=== PATIENT | male | born 1960 | race Caucasian/White ===

== ENCOUNTER 2016-12-17 19:49 | Observation (INO) ==
[2016-12-17] MEDS ORDERED: Ipratropium/Albuterol Neb 3 ML IH ONE (20:17)
[2016-12-17] MEDS ORDERED: methylPREDNISolone 125 MG/2 ML VIAL IVP ONE (20:18)
[2016-12-17] MEDS ORDERED: Ondansetron 4 MG/2 ML VIAL IVP ONE (20:19)
--- NOTE | 2016-12-17 20:35 | Emergency Department Note ---
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 This exposure happened 2 days ago. He does report that he sat exposure in the past. He admits that he side ongoing vertigo as well as dyspnea. In the past he has had dyspnea with his exposures but he has not had vertigo. He does not a history of CVA. He has no chronic deficits from his past CVA. He presents on arrival with tachycardia, mild dyspnea. He had mild bronchospasm on arrival. She denies hemoptysis. He denies recent Pain, leg tenderness. He has no sacral contacts. - Related Data Allergies Allergy/AdvReac Type Severity Reaction Status Date / Time No Known Allergies Allergy Verified 12/17/16 19:51 All systems ED: reviewed and negative except as stated. Past Medical History - Past Medical History Medical history: Reports: CVA Surgical history: Reports: no surgical history Psychiatric history: Reports: no psych history - Social History Smoking Status: Current every day smoker Smokeless Tobacco Status: No Alcohol use: Reports: occasionally Drug use: Reports: none Physical Exam Wheezing bilaterally, mild hypoxia, mild tachypnea Strength is 5/5, sensation is checked and normal, reflexes are checked and normal, cerebellar testing is normal - General Limitations: no limitations General appearance: alert - Eye Eye exam: Present: normal appearance - ENT ENT exam: normal exam - Chest Chest inspection: Present: normal inspection - Respiratory Respiratory exam: Present: wheezes - Abdominal Exam Abdominal exam: Present: soft, Non-Tender - Extremities Exam Extremities exam: Present: normal inspection - Back Exam Back exam: Present: normal inspection - Neurological Exam Neurological exam: Present: alert, oriented X3, CN II-XII intact - Skin Skin exam: Present: warm, dry Course Vital Signs Temperature 98.1 F 12/17/16 19:52 Pulse Rate 118 12/17/16 19:52 Respiratory Rate 20 12/17/16 19:52 Blood Pressure 119/72 12/17/16 19:52 O2 Sat by Pulse Oximetry 94 12/17/16 19:52 Temperature 98.1 F 12/17/16 19:52 Pulse Rate 110 12/17/16 21:53 Respiratory Rate 16 12/17/16 21:53 Blood Pressure 124/88 12/17/16 21:53 O2 Sat by Pulse Oximetry 97 12/17/16 21:53 Oxygen Delivery Oxygen Delivery Room Air Dizziness - MDM Narrative Medical decision making narrative: 56-year-old male with chemical pneumonitis who is having bronchospasm and mild hypoxia. He also has mild tachycardia. His EKG shows no ST segment changes. I would admit for bronchodilators, steroids. These were administered in the emergency department with moderate increase in the patient's work of breathing. He does not history of tobacco abuse. He also has some vertigo. I did contact poison control and the sequelae of chloride dioxide exposure can be variable and can include nausea, vomiting, acute lung injury. They recommended admission for observation for bronchospasm. It is possible that his vertiginous symptoms are related to exposure but given his history of CVA I think we have to explore the possibility of neurologic causes in addition to his exposure. CTA of the head was performed. He will be admitted for neuro checks and ongoing monitoring. Stable at the time of admission. - Medical Records Medical records reviewed: Yes I reviewed the patient's medical records. - Lab Data Lab results reviewed: Yes I reviewed the patient's lab results. Result diagrams: 12/17/16 20:30 12/17/16 20:30 Lab Results 12/17/16 12/17/16 12/17/16 Range/Units 20:30 20:30 20:30 WBC 12.3 H (4.3-11.1) K/mcL RBC 5.33 (4.19-5.50) M/mcL Hgb 16.2 (12.9-16.9) g/dL Hct 47.2 (37.5-50.1) % MCV 88.6 (83.0-100.0) fL MCH 30.4 (28.0-33.3) pg MCHC 34.3 (31.6-35.5) g/dL RDW 13.0 (11.5-14.5) % Plt Count 283 (140-400) K/mcL MPV 9.5 (9.4-12.4) fL Immature Gran % 0.3 (0-4) % Seg Neutrophils % 75.9 % Lymphocytes % 17.0 % Monocytes % 5.3 % Eosinophils % 1.3 % Basophils % 0.2 % Neutrophils # 9.4 H (1.6-8.9) K/mcL Lymphocytes # 2.1 (0.6-4.6) K/mcL Monocytes # 0.7 (0.0-1.3) K/mcL Eosinophils # 0.2 (0.0-0.6) K/mcL Basophils # 0.0 (0.0-0.2) K/mcL Immature Plt Fraction 2.8 (1.1-6.1) % VBG pH (7.32-7.42) pH Units VBG pCO2 (41-51) mmHg VBG pO2 (25-40) mmHg VBG HCO3 (21-27) mEq/L Sodium 138 (136-145) mEq/L Potassium 4.1 (3.5-4.5) mEq/L Chloride 104 (98-109) mEq/L Carbon Dioxide 24 (19-29) mEq/L BUN 21 (8-26) mg/dL Creatinine 1.09 (0.72-1.25) mg/dL Est GFR ( Amer) > 60 (> 60) Est GFR (Non-Af Amer) > 60 (> 60) BUN/Creatinine Ratio 19 (6-26) Glucose 98 (70-99) mg/dL Calculated Osmolality 289 (280-300) Calcium 9.8 (8.6-10.8) mg/dL Total Bilirubin 1.7 H (0.2-1.2) mg/dL AST 27 (5-34) Units/L ALT 23 (0-55) Units/L Alkaline Phosphatase 67 (38-126) Units/L Troponin I 0.00 (0-0.03) ng/mL B-Natriuretic Peptide (0-100) pg/mL Serum Total Protein 7.5 (6.0-8.3) g/dL Albumin 3.8 (3.5-5.0) g/dL Globulin 3.7 H (2.4-3.5) g/dL Albumin/Globulin Ratio 1.0 L (1.1-2.2) 12/17/16 12/17/16 Range/Units 20:30 20:30 WBC (4.3-11.1) K/mcL RBC (4.19-5.50) M/mcL Hgb (12.9-16.9) g/dL Hct (37.5-50.1) % MCV (83.0-100.0) fL MCH (28.0-33.3) pg MCHC (31.6-35.5) g/dL RDW (11.5-14.5) % Plt Count (140-400) K/mcL MPV (9.4-12.4) fL Immature Gran % (0-4) % Seg Neutrophils % % Lymphocytes % % Monocytes % % Eosinophils % % Basophils % % Neutrophils # (1.6-8.9) K/mcL Lymphocytes # (0.6-4.6) K/mcL Monocytes # (0.0-1.3) K/mcL Eosinophils # (0.0-0.6) K/mcL Basophils # (0.0-0.2) K/mcL Immature Plt Fraction (1.1-6.1) % VBG pH 7.43 H (7.32-7.42) pH Units VBG pCO2 42 (41-51) mmHg VBG pO2 63 H (25-40) mmHg VBG HCO3 27.9 H (21-27) mEq/L Sodium (136-145) mEq/L Potassium (3.5-4.5) mEq/L Chloride (98-109) mEq/L Carbon Dioxide (19-29) mEq/L BUN (8-26) mg/dL Creatinine (0.72-1.25) mg/dL Est GFR ( Amer) (> 60) Est GFR (Non-Af Amer) (> 60) BUN/Creatinine Ratio (6-26) Glucose (70-99) mg/dL Calculated Osmolality (280-300) Calcium (8.6-10.8) mg/dL Total Bilirubin (0.2-1.2) mg/dL AST (5-34) Units/L ALT (0-55) Units/L Alkaline Phosphatase (38-126) Units/L Troponin I (0-0.03) ng/mL B-Natriuretic Peptide < 10 (0-100) pg/mL Serum Total Protein (6.0-8.3) g/dL Albumin (3.5-5.0) g/dL Globulin (2.4-3.5) g/dL Albumin/Globulin Ratio (1.1-2.2) - Radiology Data Radiology results reviewed: Yes I reviewed the patient's radiology results. - EKG Data EKG attestation: Yes I reviewed and interpreted this EKG. EKG results narrative: Sinus tachycardia normal axis normal intervals and nonspecific ST segment changes
[2016-12-17 20:43] LABS: Basophils % 0.2 %; Eosinophils # 0.2 K/mcL (0.0-0.6); Eosinophils % 1.3 %; Hematocrit 47.2 % (37.5-50.1); Hemoglobin 16.2 g/dL (12.9-16.9); Immature Granulocytes % 0.3 % (0-4); Immature Platelets 2.8 % (1.1-6.1); Lymphocytes # 2.1 K/mcL (0.6-4.6); Mean Corpuscular HGB Conc 34.3 g/dL (31.6-35.5); Mean Corpuscular Hemoglobin 30.4 pg (28.0-33.3); Mean Corpuscular Volume 88.6 fL (83.0-100.0); Mean Platelet Volume 9.5 fL (9.4-12.4); Monocytes # 0.7 K/mcL (0.0-1.3); Monocytes % 5.3 %; Neutrophils # 9.4 K/mcL (1.6-8.9); Platelet Count 283 K/mcL (140-400); Red Blood Count 5.33 M/mcL (4.19-5.50); Segmented Neutrophils % 75.9 %; VBG HCO3 27.9 mEq/L (21-27); VBG PH 7.43 pH Units (7.32-7.42)
[2016-12-17 20:57] LABS: Alanine Aminotransferase 23 Units/L (0-55); Albumin 3.8 g/dL (3.5-5.0); Alkaline Phosphatase 67 Units/L (38-126); Aspartate Amino Transferase 27 Units/L (5-34); BUN/Creatinine Ratio 19 (6-26); Bilirubin,Total 1.7 mg/dL (0.2-1.2); Blood Urea Nitrogen 21 mg/dL (8-26); Calcium 9.8 mg/dL (8.6-10.8); Carbon Dioxide 24 mEq/L (19-29); Chloride 104 mEq/L (98-109); Globulin 3.7 g/dL (2.4-3.5); Glucose 98 mg/dL (70-99); Osmolality,Calculated 289 (280-300); Potassium 4.1 mEq/L (3.5-4.5); Sodium 138 mEq/L (136-145); Total Protein 7.5 g/dL (6.0-8.3); eGFR For African Americans > 60 (> 60); eGFR For Non-African Americans > 60 (> 60)
[2016-12-17 23:16] VITALS: BP 110/66
[2016-12-17] MEDS ORDERED: 0.9 % Sodium Chloride 1,000 ML IVC SCH (23:45)
[2016-12-17] MEDS ORDERED: Ipratropium/Albuterol Neb 3 ML IH PRN (23:56)
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
[2016-12-18] MEDS ORDERED: *HR* Heparin 5,000 UNIT/ML VIAL SQ SCH (06:00)
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
[2016-12-18] MEDS ORDERED: Aspirin Enteric Coated 81 MG Tablet PO SCH (09:00)
--- NOTE | 2016-12-18 09:55 | Electrocardiograph Report ---
[place] [id number] Test Date: 2016-12-17 Pat Name: Mark Lyn Department: 105 Room: 3B Gender: M Furniture Fabricator: MAGGIE : 1960 Requested By: Priti Montano Order Number: [id number] Reading MD: Tara Conway Measurements Intervals [place] Rate: 111 P: 65 NV: 153 QRS: 56 QRSD: 73 T: 49 QT: 314 QTc: 379 Interpretive Statements SINUS TACHYCARDIA ABNORMAL RHYTHM ECG Electronically Signed On 12-18-2016 9:53:42 EDT by Tara Conway
== END 2016-12-18 06:51 | disposition home or self-care (01) ==
LOC: 3BNU 19:49 → EMEROO 19:49 → 3BNU 22:49
PROVIDERS: ADMIT Internal Medicine; ATTEND Nurse Practitioner Family